=== PATIENT | female | born 1970 | race Caucasian/White ===

== ENCOUNTER 2019-09-14 07:00 | Day surgery (SDC) | payer OTHER ==
[~2019-09-14] VITALS: Ht 142.2 cm; Wt 51.8 kg
[~2019-09-14 07:00] MED LIST: PHEN300C6 PO; RINGERS SOLUTION,LACTATED 1,000 ML IV ONE
[2019-09-14] MEDS ORDERED: DEXAMETHASONE SOD PHOS 4 MG/ML VIAL IVP ONE (07:01)
[2019-09-14] MEDS ORDERED: SUCCINYLCHOLINE CHLORIDE 20 MG/ML 10 ML VIAL IVP ONE (07:01)
[2019-09-14] MEDS ORDERED: LIDOCAINE/PF 2% 5 ML VIAL IM ONE (07:01)
[2019-09-14] MEDS ORDERED: 0.9% SODIUM CHLORIDE 10 ML VIAL IVP ONE (07:01)
[2019-09-14] MEDS ORDERED: PROPOFOL 1% 20 ML VIAL IVP ONE (07:01)
[2019-09-14] MEDS ORDERED: FentaNYL CITRATE-PF 100 MCG/2 ML VIAL IVP ONE (07:01)
[2019-09-14] MEDS ORDERED: EPHEDrine SULFATE 50 MG/ML VIAL IM ONE (07:01)
[2019-09-14] MEDS ORDERED: ONDANSETRON HCL 4 MG/2 ML VIAL IVP ONE (07:01)
[2019-09-14] MEDS ORDERED: AMPICILLIN SODIUM 1 GM/VIAL ONE (07:07)
[2019-09-14] MEDS ORDERED: SENN8.6T20 PO (07:23)
[2019-09-14] MEDS ORDERED: FOLI1 PO (07:23)
[2019-09-14 07:53] LABS: BASOPHILS % (AUTO) 0.1 % (0.0-2.0); EOSINOPHILS % (AUTO) 0.5 % (1.0-6.0); HEMATOCRIT 42.2 % (36-46); HEMOGLOBIN 14.6 g/dL (12.0-16.0); LYMPHOCYTES # (AUTO) 2.2 K/uL (1.0-4.8); LYMPHOCYTES % (AUTO) 26.7 % (22.0-44.0); MEAN CORPUSCULAR HEMOGLOBIN 29.3 pg (26.0-34.0); MEAN CORPUSCULAR HGB CONC 34.5 G/dL (31.0-37.0); MEAN CORPUSCULAR VOLUME 85 fL (80-100); MONOCYTES # (AUTO) 0.5 K/uL (0.1-1.0); MONOCYTES % (AUTO) 6.3 % (2.0-9.0); NEUTROPHILS # (AUTO) 5.4 K/uL (1.8-7.7); NEUTROPHILS % (AUTO) 66.4 % (40.0-70.0); PLATELET COUNT (AUTO) 228 K/uL (150-450); RED BLOOD CELL COUNT(AUTO) 4.96 MIL/uL (4.00-5.20); RED CELL DISTRIBUTION WIDTH 12.9 % (11.5-14.5)
[2019-09-14 08:04] LABS: ANION GAP 3 mmol/L (8-16); CALCIUM, TOTAL 8.7 mg/dL (8.8-10.5); CARBON DIOXIDE 30 mmol/L (22-29); CHLORIDE 102 mmol/L (98-107); CREATININE 0.67 mg/dL (0.60-1.30); GLOMERULAR FILTR. RATE CALC > 60 mL/min (>60); GLUCOSE,RANDOM 128 mg/dL (70-110); POTASSIUM 4.1 mmol/L (3.5-5.1); SODIUM SERUM 135 mmol/L (136-145); UREA NITROGEN, BLOOD 14 mg/dL (7-18)
[2019-09-14 08:05] LABS: PROTHROMBIN TIME 10.2 SEC (9.4-11.6)
[2019-09-14 08:16] LABS: ALANINE AMINOTRANSFERASE 21 U/L (12-78); ALBUMIN 3.7 g/dL (3.4-5.0); ALKALINE PHOSPHATASE 90 U/L (46-116); ASPARTATE AMINOTRANSFERASE 17 U/L (15-37); BILIRUBIN,TOTAL 0.2 mg/dL (0.1-1.0); HCG,QUANTITATIVE < 1 mIU/mL (0-6); TOTAL PROTEIN, SERUM 7.8 g/dL (6.4-8.2)
[2019-09-14] MEDS ORDERED: HYDROmorphone 2 MG/ML SYRINGE IVP PRN (11:15)
[2019-09-14] MEDS ORDERED: MEPERIDINE-PF 25 MG/ML VIAL IVP PRN (11:15)
[2019-09-14] MEDS ORDERED: FentaNYL CITRATE-PF 100 MCG/2 ML VIAL IVP PRN (11:15)
[2019-09-14] MEDS ORDERED: OXYGEN THERAPY IH SCH (20:00)
== END 2019-09-14 13:10 | disposition home or self-care (01) ==
LOC: SURGERY 07:00
PROVIDERS: ATTEND Dentist General Practice
DX: K02.9 Dental caries, unspecified (principal); K05.30 Chronic periodontitis, unspecified; F41.9 Anxiety disorder, unspecified; G40.909 Epilepsy, unspecified, not intractable, without status epilepticus; G47.00 Insomnia, unspecified; Z79.899 Other long term (current) drug therapy; Z79.01 Long term (current) use of anticoagulants; Z90.49 Acquired absence of other specified parts of digestive tract; Z98.890 Other specified postprocedural states
CPT/HCPCS: 36415; 41899; 71045; 80053; 84702; 85025; 85610; 85730; 93005; J0290; J0330; J1100; J2405; J2704; J3010; J3490 ×2; J7120

== ENCOUNTER 2024-01-13 06:16 | Day surgery (SDC) | payer OTHER ==
[~2024-01-13] VITALS: Ht 147.3 cm; Wt 46.8 kg
[~2024-01-13 06:16] MED LIST changes: +FOLI-130 PO; -RINGERS SOLUTION,LACTATED 1,000 ML IV ONE; +SENN8.6T20 PO
[2024-01-13] MEDS ORDERED: RINGERS SOLUTION,LACTATED 1,000 ML IV ONE (07:14)
[2024-01-13] MEDS ORDERED: AMPICILLIN SODIUM 2 GM/NS 100 ML IV ONE (07:49)
[2024-01-13] MEDS ORDERED: ATOR40TA28 PO (07:53)
[2024-01-13] MEDS ORDERED: MIRT-89 PO (07:53)
[2024-01-13] MEDS ORDERED: LISI-894 PO (07:53)
[2024-01-13] MEDS ORDERED: GABA-1216 PO (07:53)
[2024-01-13] MEDS ORDERED: METF-1211 PO (07:53)
[2024-01-13 08:18] LABS: BASOPHILS % (AUTO) 0.4 % (0.0-2.0); EOSINOPHILS % (AUTO) 2.3 % (1.0-6.0); HEMATOCRIT 40.9 % (36-46); LYMPHOCYTES # (AUTO) 2.7 K/uL (1.0-4.8); LYMPHOCYTES % (AUTO) 26.7 % (22.0-44.0); MEAN CORPUSCULAR HEMOGLOBIN 28.5 pg (26.0-34.0); MEAN CORPUSCULAR HGB CONC 34.2 G/dL (31.0-37.0); MEAN CORPUSCULAR VOLUME 83 fL (80-100); MONOCYTES # (AUTO) 0.5 K/uL (0.1-1.0); MONOCYTES % (AUTO) 5.2 % (2.0-9.0); NEUTROPHILS # (AUTO) 6.5 K/uL (1.8-7.7); NEUTROPHILS % (AUTO) 65.4 % (40.0-70.0); PLATELET COUNT (AUTO) 239 K/uL (150-450); RED BLOOD CELL COUNT(AUTO) 4.91 MIL/uL (4.00-5.20); RED CELL DISTRIBUTION WIDTH 12.9 % (11.5-14.5)
[2024-01-13 08:30] LABS: ANION GAP 7 mmol/L (8-16); CALCIUM, TOTAL 9.7 mg/dL (8.8-10.5); CARBON DIOXIDE 28 mmol/L (22-29); CHLORIDE 101 mmol/L (98-107); CREATININE 0.65 mg/dL (0.60-1.30); GLOMERULAR FILTR. RATE CALC > 60 mL/min (>60); GLUCOSE,RANDOM 151 mg/dL (70-110); POTASSIUM 4.2 mmol/L (3.5-5.1); SODIUM SERUM 136 mmol/L (136-145); UREA NITROGEN, BLOOD 15 mg/dL (7-18)
[2024-01-13 08:37] LABS: ALANINE AMINOTRANSFERASE 24 U/L (12-78); ALKALINE PHOSPHATASE 126 U/L (46-116); ASPARTATE AMINOTRANSFERASE 21 U/L (15-37); BILIRUBIN,TOTAL 0.2 mg/dL (0.1-1.0); TOTAL PROTEIN, SERUM 8.7 g/dL (6.4-8.2)
[2024-01-13 08:48] LABS: PROTHROMBIN TIME 10.3 SEC (9.4-11.6)
[2024-01-13] MEDS: RINGERS SOLUTION,LACTATED 1,000 ML IV ONE (09:09)
[2024-01-13] MEDS ORDERED: DEXAMETHASONE 4 MG TABLET ONE (17:56)
[2024-01-13] MEDS ORDERED: ONDANSETRON HCL 4 MG/2 ML VIAL ONE (17:56)
[2024-01-13] MEDS ORDERED: ROCURONIUM BROMIDE 10 MG/ML 5 ML VIAL ONE (17:56)
[2024-01-13] MEDS ORDERED: LIDOCAINE/PF 2% 5 ML SYRINGE IVP ONE (17:56)
[2024-01-13] MEDS ORDERED: SUGAMMADEX SODIUM 200 MG/2 ML VIAL IVP ONE (17:56)
[2024-01-13] MEDS ORDERED: PROPOFOL 1% 20 ML VIAL IVP ONE (17:56)
== END 2024-01-13 11:50 | disposition home or self-care (01) ==
LOC: SURGERY 06:16
PROVIDERS: ATTEND Dentist General Practice
DX: K02.9 Dental caries, unspecified (principal); K05.30 Chronic periodontitis, unspecified; F41.9 Anxiety disorder, unspecified; I85.00 Esophageal varices without bleeding; Q90.9 Down syndrome, unspecified; E11.9 Type 2 diabetes mellitus without complications; I10 Essential (primary) hypertension; G40.909 Epilepsy, unspecified, not intractable, without status epilepticus; Z79.899 Other long term (current) drug therapy; Z79.01 Long term (current) use of anticoagulants; Z98.890 Other specified postprocedural states; Z90.49 Acquired absence of other specified parts of digestive tract
CPT/HCPCS: 41899; 71045; 80053; 85025; 85610; 85730; 36415; 93005; J0290; J2704; J8540; J2405; J3490 ×2; Q9967; J7120

== ENCOUNTER 2024-09-20 20:36 | Emergency (ER) | payer OTHER ==
[~2024-09-20] VITALS: Ht 152.4 cm; Wt 47.7 kg
[~2024-09-20 20:36] MED LIST changes: +ATOR40TA28 PO; +GABA-1216 PO; +LISI-894 PO; +METF-1211 PO; +MIRT-89 PO
[2024-09-20 21:00] VITALS: TEMP 98
[2024-09-20 21:56] LABS: BASOPHILS % (AUTO) 0.3 % (0.0-2.0); EOSINOPHILS % (AUTO) 1.5 % (1.0-6.0); HEMATOCRIT 42.4 % (36-46); HEMOGLOBIN 14.2 g/dL (12.0-16.0); LYMPHOCYTES # (AUTO) 3.9 K/uL (1.0-4.8); LYMPHOCYTES % (AUTO) 26.3 % (22.0-44.0); MEAN CORPUSCULAR HEMOGLOBIN 28.2 pg (26.0-34.0); MEAN CORPUSCULAR HGB CONC 33.5 G/dL (31.0-37.0); MEAN CORPUSCULAR VOLUME 84 fL (80-100); MONOCYTES # (AUTO) 0.9 K/uL (0.1-1.0); NEUTROPHILS # (AUTO) 9.7 K/uL (1.8-7.7); NEUTROPHILS % (AUTO) 65.9 % (40.0-70.0); PLATELET COUNT (AUTO) 236 K/uL (150-450); RED BLOOD CELL COUNT(AUTO) 5.03 MIL/uL (4.00-5.20); RED CELL DISTRIBUTION WIDTH 13.1 % (11.5-14.5); WHITE BLOOD COUNT (AUTO) 14.7 K/uL (4.5-11.0)
[2024-09-20 22:08] LABS: ANION GAP 10 mmol/L (8-16); CALCIUM, TOTAL 9.7 mg/dL (8.8-10.5); CARBON DIOXIDE 30 mmol/L (22-29); CHLORIDE 96 mmol/L (98-107); GLOMERULAR FILTR. RATE CALC > 60 mL/min (>60); GLUCOSE,RANDOM 192 mg/dL (70-110); SODIUM SERUM 136 mmol/L (136-145); UREA NITROGEN, BLOOD 15 mg/dL (7-18)
[2024-09-20 22:10] LABS: ALCOHOL, BLOOD (SERUM) < 3 mg/dL (0-10)
[2024-09-20] MEDS: DiphenhydrAMINE HCL 25 MG CAPSULE PO ONE (22:23)
[2024-09-20] MEDS: HALOPERIDOL 5 MG TABLET PO ONE (22:23)
[2024-09-20] MEDS: LORazepam 2 MG TABLET PO ONE (22:24)
[2024-09-20 22:49] VITALS: BP 148/75; PULSE 92; RESP 18; O2SAT 96
== END 2024-09-20 23:07 | disposition home or self-care (01) ==
LOC: EMS 20:36
DX: F28 Other psychotic disorder not due to a substance or known physiological condition (principal)
CPT/HCPCS: 99284; 80048; 85025; 36415; G0480

== ENCOUNTER 2024-11-07 13:11 | Emergency (ER) | payer OTHER ==
[~2024-11-07] VITALS: Ht 147.3 cm; Wt 54.5 kg
[~2024-11-07 13:11] MED LIST changes: -LISI-894 PO
[2024-11-07 13:23] VITALS: TEMP 99.2
[2024-11-07 14:45] VITALS: BP 134/74; PULSE 95; RESP 17; O2SAT 98
[2024-11-07 15:38] LABS: APPEARANCE,URINE CLEAR (CLEAR); BILIRUBIN,URINE NEGATIVE (NEGATIVE); COLOR,URINE YELLOW (YELLOW); GLUCOSE, URINE (UA) NEGATIVE (NEGATIVE); KETONES,URINE TRACE mg/dL (NEGATIVE); LEUKOCYTE ESTERASE ,URINE NEGATIVE (NEGATIVE); NITRATE,URINE NEGATIVE (NEGATIVE); OCCULT BLOOD,URINE NEGATIVE (NEGATIVE); PH,URINE 5.5 (5.0-8.0); PROTEIN,URINE TRACE mg/dL (NEGATIVE); SPECIFIC GRAVITIY, URINE 1.032 (1.003-1.030); UROBILINOGEN,URINE <=1.0 mg/dL (<=1.0)
[2024-11-07] MEDS ORDERED: METR500 PO (16:03)
[2024-11-07] MEDS ORDERED: FLUC150T61 PO (16:04)
== END 2024-11-07 16:08 | disposition home or self-care (01) ==
LOC: EMS 13:11
DX: N76.0 Acute vaginitis (principal); B96.89 Other specified bacterial agents as the cause of diseases classified elsewhere; E11.9 Type 2 diabetes mellitus without complications; F79 Unspecified intellectual disabilities; Z79.899 Other long term (current) drug therapy
CPT/HCPCS: 81003; 82962; 87070; 99283

== ENCOUNTER 2025-06-29 18:46 | Emergency (ER) | payer OTHER ==
[~2025-06-29] VITALS: Ht 152.4 cm; Wt 54.5 kg
[~2025-06-29 18:46] MED LIST changes: +FLUC150T61 PO; +METR500 PO
[2025-06-29 18:52] VITALS: BP 136/83; PULSE 70; RESP 18; TEMP 98; O2SAT 99
[2025-06-29 19:19] LABS: PLATELET COUNT (AUTO) 356 K/uL (150-450); RED BLOOD CELL COUNT(AUTO) 3.79 MIL/uL (4.00-5.20); RED CELL DISTRIBUTION WIDTH 15.1 % (11.5-14.5); WHITE BLOOD COUNT (AUTO) 15.7 K/uL (4.5-11.0)
[2025-06-29 19:26] LABS: CALCIUM, TOTAL 10.6 mg/dL (8.8-10.5); CREATININE 0.49 mg/dL (0.60-1.30); GLOMERULAR FILTR. RATE CALC > 60 mL/min (>60); GLUCOSE,RANDOM 106 mg/dL (70-110); SODIUM SERUM 137 mmol/L (136-145); UREA NITROGEN, BLOOD 13 mg/dL (7-18)
== END 2025-06-29 22:17 | disposition left against medical advice (07) ==
LOC: EMS 18:48
DX: R58 Hemorrhage, not elsewhere classified (principal); Z53.21 Procedure and treatment not carried out due to patient leaving prior to being seen by health care provider
CPT/HCPCS: 80048; 82962; 85025

== ENCOUNTER 2025-07-22 10:02 | Emergency (ER) | payer OTHER ==
[~2025-07-22] VITALS: Ht 127 cm; Wt 36.4 kg
[~2025-07-22 10:02] MED LIST changes: +AMOX-457 PO; -METR500 PO; +NALO4SPR NASAL; +OXYC5 PO
[2025-07-22 10:07] VITALS: TEMP 98.1
[2025-07-22 10:30] VITALS: BP 113/69; PULSE 110; RESP 17; O2SAT 98
== END 2025-07-22 11:17 | disposition home or self-care (01) ==
LOC: EMS 10:02
DX: Z46.6 Encounter for fitting and adjustment of urinary device (principal); E11.9 Type 2 diabetes mellitus without complications; Z85.41 Personal history of malignant neoplasm of cervix uteri; Z79.899 Other long term (current) drug therapy
CPT/HCPCS: 51702; 82962; 99284

== ENCOUNTER 2025-07-31 22:48 | Emergency (ER) | payer OTHER ==
[~2025-07-31] VITALS: Ht 147.3 cm; Wt 33.6 kg
[2025-08-01] MEDS: LORazepam 2 MG/ML VIAL IVP ONE (00:11)
[2025-08-01] MEDS: MORPHINE SULFATE 2 MG/ML SYRINGE IVP ONE ×3 (00:11→06:30)
[2025-08-01] MEDS: SODIUM CHLORIDE 0.9% 1,000 ML IV ONE (00:11)
[2025-08-01 00:20] LABS: PLATELET COUNT (AUTO) 234 K/uL (150-450); RED BLOOD CELL COUNT(AUTO) 3.71 MIL/uL (4.00-5.20); RED CELL DISTRIBUTION WIDTH 15.5 % (11.5-14.5); WHITE BLOOD COUNT (AUTO) 8.6 K/uL (4.5-11.0)
[2025-08-01 00:30] LABS: CALCIUM, TOTAL 8.5 mg/dL (8.8-10.5); CREATININE 0.59 mg/dL (0.60-1.30); GLOMERULAR FILTR. RATE CALC > 60 mL/min (>60); GLUCOSE,RANDOM 111 mg/dL (70-110); SODIUM SERUM 140 mmol/L (136-145); UREA NITROGEN, BLOOD 10 mg/dL (7-18)
[2025-08-01 00:40] LABS: ASPARTATE AMINOTRANSFERASE 28.0 U/L (15-37); TOTAL PROTEIN, SERUM 7.1 g/dL (6.4-8.2)
[2025-08-01 00:41] LABS: TROPONIN I-HIGH SENSITIVITY 4 ng/L (<51)
[2025-08-01 05:42] LABS: APPEARANCE,URINE HAZY (CLEAR); GLUCOSE, URINE (UA) NEGATIVE (NEGATIVE); LEUKOCYTE ESTERASE ,URINE LARGE (NEGATIVE); OCCULT BLOOD,URINE SMALL (NEGATIVE); SPECIFIC GRAVITIY, URINE 1.012 (1.003-1.030)
[2025-08-01 06:53] LABS: NITRATE,URINE POSITIVE (NEGATIVE)
[2025-08-01 07:26] VITALS: BP 136/82; PULSE 76; RESP 16; O2SAT 96
[2025-08-01 07:57] LABS: SQUAMOUS EPITHELIAL CELL,UR Rare /LPF (None Seen)
== END 2025-08-01 08:15 | disposition short-term general hospital (02) ==
LOC: EMS 22:48
DX: R10.84 Generalized abdominal pain (principal); E11.9 Type 2 diabetes mellitus without complications; Z85.41 Personal history of malignant neoplasm of cervix uteri; Z85.9 Personal history of malignant neoplasm, unspecified; Z79.899 Other long term (current) drug therapy
CPT/HCPCS: 99285; 80048; 80076; 81001; 83690; 84484; 85025; 87086; 36415; 74018; 93005; 96361; 74176; 96374; 96375; 96376; J2060; J2270; J7030; 87077